=== PATIENT | female | born 1995 | race African-American/Black ===

== ENCOUNTER 2023-11-19 12:22 | Emergency (ER) | payer SELFPAY ==
[2023-11-19 12:38] VITALS: TEMP 96.8
[2023-11-19 12:59] LABS: Hematocrit 39.8 % (34.1-44.9); Hemoglobin 12.9 g/dL (11.2-15.7); Mean Cell Volume 79.3 fL (79.4-94.8); Mean Corpuscular Hemoglobin 25.7 pg (25.6-32.2); Mean Corpuscular Hgb Concent. 32.4 g/dL (32.2-35.5); Mean Platelet Volume 12.3 fL (9.4-12.3); Platelet Count 231 x10^3/uL (182-369); Red Blood Count 5.02 x10^6/uL (3.93-5.22)
[2023-11-19 13:22] LABS: ALBUMIN 4.6 g/dL (3.5-5.0); ANION GAP 12.9 MEQ/L (5-15); BILIRUBIN,TOTAL 0.4 mg/dL (0.2-1.3); Calcium 9.6 mg/dL (8.4-10.2); Creatinine 1 0.62 mg/dL (0.52-1.04); EST GLOMERULAR FILTRATION RATE 125.9 ML/MIN; NT PRO BNPII 23.9 pg/mL (<300); Potassium 3.5 mmol/L (3.5-5.1); Total Protein 7.6 g/dL (6.3-8.2)
--- NOTE | 2023-11-19 13:24 | XRAY ---
Indication: Pain. Comparison: None Portable chest demonstrates normal heart, lungs, and bony thorax.
[2023-11-19 13:32] LABS: Eosinophil 6 % (0.00-3.0); Lymphocytes 28 % (24-44); Monocyte 5 % (0.0-12.0); Neutrophils 61 % (1.56-6.13); Platelet Estimate NORMAL (NORMAL); Total Cells Counted 100
--- NOTE | 2023-11-19 14:51 | ERPHSYRPT ---
- History of Present Illness Time Seen by Provider: 11/19/23 13:00 Historian: patient Exam Limitations: no limitations Patient Subjective Stated Complaint: Chest pain Triage Nursing Assessment: Patient ambulated back to ED and transferred self to bed. Patient A+O X3. Patient's skin flushed, warm and diaphoretic. Patient states she started having chest pressure between 8-9 this am that has gotten worse. Patient denies N/V. Patient states chest pain is intermittent burning 12/13. Physician History: 48-year-old female no significant past medical history presents to the emergency department for evaluation of substernal chest pain that started this morning at approximately 8 AM. Patient states symptoms started after drinking her coffee. Patient symptoms described as a burning sensation that was substernal. No radi ation. No associated nausea vomiting or diaphoresis. Patient is currently asymptomatic. She is otherwise well and voices no other complaints or concerns at this time. Portions of this note were created with voice recognition technology. There may be grammatical, spelling, punctuation or sound alike errors Timing/Duration: today Activities at Onset: none Quality: aching Location: substernal Chest Pain Radiation: no radiation Severity of Pain-Current: mild Modifying Factors: Improves With: nothing Associated Symptoms: denies symptoms Prior Chest Pain/Cardiac Workup: no prior chest pain Nitro Today/Relief: no nitro taken today Aspirin Treatment Today: no aspirin today Allergies/Adverse Reactions: No Known Drug Allergies Allergy (Unverified 11/19/23 12:28) Home Medications: No Reportable Medications [No Reported Medications] 11/19/23 [History] Hx Influenza Vaccination/Date Given: No Hx Pneumococcal Vaccination/Date Given: No Immunizations Up to Date: Yes Travel Risk - International Travel Have you traveled outside of the country in past 3 weeks: No - Emerging Infectious Disease Are you exhibiting symptoms associated with any current EIDs: No - Review of Systems Constitutional: No Fever, No Chills Eyes: No Symptoms Ears, Nose, & Throat: No Symptoms Respiratory: No Symptoms, No Cough, No Dyspnea Cardiac: No Symptoms, No Chest Pain, No Edema, No Syncope Abdominal/Gastrointestinal: No Symptoms, No Abdominal Pain, No Nausea, No Vomiting, No Diarrhea Genitourinary Symptoms: No Symptoms, No Dysuria Musculoskeletal: No Symptoms, No Back Pain, No Neck Pain Skin: No Symptoms, No Rash Neurological: No Symptoms, No Dizziness, No Focal Weakness, No Sensory Changes Psychological: No Symptoms Endocrine: No Symptoms Hematologic/Lymphatic: No Symptoms Immunological/Allergic: No Symptoms All Other Systems: Reviewed and Negative - Past Medical History Pertinent Past Medical History: Yes Neurological History: No Pertinent History ENT History: No Pertinent History Cardiac History: Hypertension Respiratory History: No Pertinent History Endocrine Medical History: No Pertinent History Musculoskeletal History: No Pertinent History GI Medical History: No Pertinent History History: No Pertinent History Psycho-Social History: Anxiety Female Reproductive Disorders: No Pertinent History - Past Surgical History Past Surgical History: Yes Neuro Surgical History: No Pertinent History Cardiac: No Pertinent History Respiratory: No Pertinent History Gastrointestinal: No Pertinent History Genitourinary: No Pertinent History Musculoskeletal: No Pertinent History Female Surgical History: Section Other Surgical History: C section X 2 - Female History Hx Last Menstrual Period: currently Hx Now: No - Social History Smoking Status: Current every day smoker How long have you smoked: years Exposure to second hand smoke: No Drug Use: none - Social Determinants of Health Will the patient participate in the screening: Yes Do you worry about a steady place to live?: No Do you have any problems with any of the following?: No known problems In the past 12 months,have you had to go without utilities?: No Transportation Issues: No Has anyone in your support network made you feel unsafe?: No Have you or anyone in your house had to go without enough: No - Nursing Vital Signs Nursing Vital Signs: Initial Vital Signs Temperature 96.8 F 11/19/23 12:30 Pulse Rate 66 11/19/23 12:30 Respiratory Rate 20 11/19/23 12:30 Blood Pressure 163/128 11/19/23 12:30 O2 Sat by Pulse Oximetry 100 11/19/23 12:30 Pain Scale Pain Intensity 4 - Physical Exam General Appearance: no apparent distress, alert Eye Exam: PERRL/EOMI, eyes nml inspection Ears, Nose, Throat Exam: normal ENT inspection, moist mucous membranes Neck Exam: normal inspection, non-tender, supple, full range of motion Respiratory Exam: normal breath sounds, lungs clear, airway intact, No respiratory distress Cardiovascular Exam: regular rate/rhythm, normal heart sounds, normal peripheral pulses Gastrointestinal/Abdomen Exam: soft, No tenderness, No mass Back Exam: normal inspection, No CVA tenderness, No vertebral tenderness Extremity Exam: normal inspection, normal range of motion Neurologic Exam: alert, oriented x 3, cooperative, normal mood/affect, sensation nml, No motor deficits Skin Exam: normal color, warm, dry Lymphatic Exam: No adenopathy SpO2 Interpretation: normal SpO2: 98 O2 Delivery: Room Air - Course Nursing assessment & vital signs reviewed: Yes EKG Interpreted by Me: RATE (57), Sinus Rhythm, NORMAL AXIS, NORMAL INTERVALS - Radiology Exams Chest X-ray Interpretation: Teleradiologist Report (No acute findings) Ordered Tests: Active Orders 24 hr Category Date Time Status Broadcast Meteorologist STAT Care 11/19/23 12:32 Active EKG-ER Only STAT Care 11/19/23 12:31 Active IV Insertion STAT Care 11/19/23 12:31 Active Pulse Oximetry (ED) STAT Care 11/19/23 12:31 Active CHEST 1 VIEW (PORTABLE) Stat Exams 11/19/23 12:32 Completed CBC W DIFF Stat Lab 11/19/23 12:45 Completed CMP Stat Lab 11/19/23 12:45 Completed D-DIMER QUANTITATIVE Stat Lab 11/19/23 12:45 Completed Manual Differential NC Stat Lab 11/19/23 12:45 Completed NT PRO BNPII Stat Lab 11/19/23 12:45 Completed TROPONIN Q4H Lab 11/19/23 12:45 Completed TROPONIN Q4H Lab 11/19/23 14:53 Completed TROPONIN Q4H Lab 11/19/23 20:45 Ordered Lab/Rad Data: Laboratory Result Diagrams 11/19/23 12:45 11/19/23 12:45 Laboratory Results 11/19/23 11/19/23 11/19/23 Range/Units 14:53 12:45 12:45 WBC (3.98-10.04) x10^3/uL RBC (3.93-5.22) x10^6/uL Hgb (11.2-15.7) g/dL Hct (34.1-44.9) % MCV (79.4-94.8) fL MCH (25.6-32.2) pg MCHC (32.2-35.5) g/dL RDW (11.7-14.4) % Plt Count (182-369) x10^3/uL MPV (9.4-12.3) fL Segmented Neutrophils (1.56-6.13) % Lymphocytes (Manual) (24-44) % Monocytes (Manual) (0.0-12.0) % Eosinophils (Manual) (0.00-3.0) % Platelet Estimate (NORMAL) RBC Morphology D-Dimer < 0.19 (0.0-0.50) mg/L Sodium (135-145) mmol/L Potassium (3.5-5.1) mmol/L Chloride (98-107) mmol/L Carbon Dioxide (22-30) mmol/L Anion Gap (5-15) MEQ/L BUN (7-17) mg/dL Creatinine (0.52-1.04) mg/dL Estimated GFR ML/MIN Glucose (74-106) mg/dL Calcium (8.4-10.2) mg/dL Total Bilirubin (0.2-1.3) mg/dL AST (14-36) U/L ALT (0-35) U/L Alkaline Phosphatase (38-126) U/L Troponin I < 0.012 < 0.012 (0.000-0.033) ng/mL NT-Pro-B Natriuret Pep (<300) pg/mL Serum Total Protein (6.3-8.2) g/dL Albumin (3.5-5.0) g/dL 11/19/23 11/19/23 Range/Units 12:45 12:45 WBC 5.0 (3.98-10.04) x10^3/uL RBC 5.02 (3.93-5.22) x10^6/uL Hgb 12.9 (11.2-15.7) g/dL Hct 39.8 (34.1-44.9) % MCV 79.3 L (79.4-94.8) fL MCH 25.7 (25.6-32.2) pg MCHC 32.4 (32.2-35.5) g/dL RDW 14.0 (11.7-14.4) % Plt Count 231 (182-369) x10^3/uL MPV 12.3 (9.4-12.3) fL Segmented Neutrophils 61 H (1.56-6.13) % Lymphocytes (Manual) 28 (24-44) % Monocytes (Manual) 5 (0.0-12.0) % Eosinophils (Manual) 6 H (0.00-3.0) % Platelet Estimate NORMAL (NORMAL) RBC Morphology NORMAL D-Dimer (0.0-0.50) mg/L Sodium 137 (135-145) mmol/L Potassium 3.5 (3.5-5.1) mmol/L Chloride 102 (98-107) mmol/L Carbon Dioxide 25 (22-30) mmol/L Anion Gap 12.9 (5-15) MEQ/L BUN 9 (7-17) mg/dL Creatinine 0.62 (0.52-1.04) mg/dL Estimated GFR 125.9 ML/MIN Glucose 104 (74-106) mg/dL Calcium 9.6 (8.4-10.2) mg/dL Total Bilirubin 0.40 (0.2-1.3) mg/dL AST 27 (14-36) U/L ALT 21 (0-35) U/L Alkaline Phosphatase 57 (38-126) U/L Troponin I (0.000-0.033) ng/mL NT-Pro-B Natriuret Pep 23.9 (<300) pg/mL Serum Total Protein 7.6 (6.3-8.2) g/dL Albumin 4.6 (3.5-5.0) g/dL - Progress Progress: improved Air Movement: good Progress Note: Heart score is 1 28-year-old female presents to emergency department for evaluation of substernal chest pain after drinking coffee. Physical exam nonremarkable. D-dimer negative. Troponin negative x 2. EKG sinus rhythm no ischemic changes. Chest x-ray nonremarkable. Patient's heart score is 1. Patient remains asymptomatic. No indication for further workup will discharge home. Patient agrees to follow-up with her primary care doctor within 48 hours for reevaluation. Portions of this note were created with voice recognition technology. There may be grammatical, spelling, punctuation or sound alike errors Complexity problem addressed is moderate acute complicated. No critical care time. Complex of data reviewed and analyzed is moderate. Test ordered chest reviewed results analyzed and correlated clinically with history and physical exam. Risk of complication and or risk of morbidity/mortality of patient management is low. Vital stable time spent to discharge patient is approximately 15 minutes. Plan of care established for shared decision making. No social determinants of health present impede follow-up. Portions of this note were created with voice recognition technology. There may be grammatical, spelling, punctuation or sound alike errors 11/19/23 15:53 Blood Culture(s) Obtained: No Antibiotics given: No Counseled pt/family regarding: diagnosis, need for follow-up, rad results - Departure Departure Disposition: Home Clinical Impression: Chest pain Condition: Stable Critical Care Time: No Referrals: AMNA THAPA MD [Primary Care Provider] - Follow up/PCP as directed Additional Instructions: Discharge/Care Plan REDDY HERNANDEZ was seen on 11/19/23 in the Emergency Room. The patient was counseled regarding Diagnosis,Lab results, Imaging studies, need for follow up and when to return to the Emergency Room. Prescriptions given: Discharge Note I have spoken with the patient and/or caregivers. I have explained the patient's condition, diagnosis and treatment plan based on the information available to me at this time. I have answered the patient's and/or caregiver's questions and addressed any concerns. The patient and/or caregivers have as good understanding of the patient's diagnosis, condition and treatment plan as can be expected at this point. The vital signs have been stable. The patient's condition is stable and appropriate for discharge from the emergency department. The patient will pursue further outpatient evaluation with the primary care physician or other designated or consulting physician as outlined in the discharge instructions. The patient and/or caregivers are agreeable to this plan of care and follow-up instructions have been explained in detail. The patient and/or caregivers have received these instruction. The patient/and or caregivers are aware that any significant change in condition or worsening of symptoms should prompt an immediate return to this or the closest emergency department or call 911.
[2023-11-19 15:45] VITALS: BP 149/88; PULSE 58; RESP 17; O2SAT 98
== END 2023-11-19 15:52 | disposition home or self-care (01) ==
LOC: ED 12:22
DX: R07.9 Chest pain, unspecified (principal); I10 Essential (primary) hypertension; Z72.0 Tobacco use
CPT/HCPCS: 36000; 36415; 71045; 80053; 83880; 84484; 85025; 85379; 93005; 93041; 94760; 99284

== ENCOUNTER 2024-03-07 06:35 | Emergency (ER) | payer BC ==
[2024-03-07 06:53] VITALS: TEMP 97.6
--- NOTE | 2024-03-07 07:24 | ERPHSYRPT ---
- History of Present Illness Time Seen by Provider: 03/07/24 07:00 Source: patient Exam Limitations: no limitations Patient Subjective Stated Complaint: pt states her blood pressure has been high for the past 3 days Triage Nursing Assessment: pt ambulated into the er; pt is axo x4; c/o htn; pt states 10/10 pain to head; blood pressure 133/102 on arrival; skin warm and dry; no respiratory distress present; vitals wnl; clear apical heart tone; s/o bodyaches Physician History: This is a 28-year-old -[place] female who arrives by private vehicle secondary to concerns for hypertension for the last 3 days. In addition she has had headache, felt weak, nonproductive dry cough, sore throat, arthralgias and myalgias. She denies chest pain. Today at work she had a systolic blood pressure of over 200 despite taking her amlodipine last night. She has increased stress at home and at work per her report. She is a daily smoker of tobacco cigarettes. Her last menstrual period was 02/17/2024. Patient states t hat she donated plasma twice recently and the most recent donation was on prior to this evaluation. The patient has not had any vomiting or diarrhea symptoms. She does not have abdominal pain. The patient has a history of hypertension and anxiety Timing/Duration: today Severity: mild Modifying Factors: Improves With: nothing Associated Symptoms: weakness, No vomiting, No abdominal pain, No shortness of breath, No chest pain Allergies/Adverse Reactions: nickel Allergy (Verified 03/07/24 06:42) Home Medications: Amlodipine Besylate 5 mg PO DAILY 03/07/24 [History] Escitalopram Oxalate 10 mg PO DAILY 03/07/24 [History] hydrOXYzine HCL [Hydroxyzine HCl] 25 mg PO QID PRN 03/07/24 [History] Hx Tetanus, Diphtheria Vaccination/Date Given: Yes Hx Influenza Vaccination/Date Given: No Hx Pneumococcal Vaccination/Date Given: No Immunizations Up to Date: No Travel Risk - International Travel Have you traveled outside of the country in past 3 weeks: No - Emerging Infectious Disease Are you exhibiting symptoms associated with any current EIDs: Yes Symptoms: Headaches/Body Aches/ - Review of Systems Constitutional: Weakness Eyes: No Symptoms Ears, Nose, & Throat: Throat Pain Respiratory: Cough Cardiac: No Symptoms Abdominal/Gastrointestinal: No Symptoms Genitourinary Symptoms: No Symptoms Musculoskeletal: Arthralgias, Myalgias Skin: No Symptoms Neurological: Headache Psychological: No Symptoms Endocrine: No Symptoms Hematologic/Lymphatic: No Symptoms Immunological/Allergic: No Symptoms All Other Systems: Reviewed and Negative - Past Medical History Pertinent Past Medical History: Yes Neurological History: No Pertinent History ENT History: No Pertinent History Cardiac History: Hypertension Respiratory History: No Pertinent History Endocrine Medical History: No Pertinent History Musculoskeletal History: No Pertinent History GI Medical History: No Pertinent History History: No Pertinent History Psycho-Social History: Anxiety Female Reproductive Disorders: No Pertinent History - Past Surgical History Past Surgical History: Yes Neuro Surgical History: No Pertinent History Cardiac: No Pertinent History Respiratory: No Pertinent History Gastrointestinal: No Pertinent History Genitourinary: No Pertinent History Musculoskeletal: No Pertinent History Female Surgical History: Section Other Surgical History: C section X 2 - Female History Hx Last Menstrual Period: 02/17/24 Hx Now: No - Social History Smoking Status: Current every day smoker How long have you smoked: years Exposure to second hand smoke: No Drug Use: none - Social Determinants of Health Will the patient participate in the screening: Yes Do you worry about a steady place to live?: No Do you have any problems with any of the following?: No known problems In the past 12 months,have you had to go without utilities?: No Transportation Issues: No Has anyone in your support network made you feel unsafe?: No Have you or anyone in your house had to go without enough: No - Nursing Vital Signs Nursing Vital Signs: Initial Vital Signs Pulse Rate 64 03/07/24 06:41 Blood Pressure 133/102 03/07/24 06:41 O2 Sat by Pulse Oximetry 99 03/07/24 06:41 Pain Scale Pain Intensity 10 - Physical Exam General Appearance: no apparent distress, alert, anxiety, thin Eye Exam: PERRL/EOMI, eyes nml inspection Ears, Nose, Throat Exam: normal ENT inspection, moist mucous membranes Neck Exam: normal inspection, non-tender, supple, full range of motion Respiratory Exam: normal breath sounds, lungs clear, airway intact, No chest tenderness, No respiratory distress Cardiovascular Exam: regular rate/rhythm, normal heart sounds, normal peripheral pulses Gastrointestinal/Abdomen Exam: soft, normal bowel sounds, No tenderness Pelvic Exam: not done Rectal Exam: not done Back Exam: normal inspection, normal range of motion, No CVA tenderness, No vertebral tenderness Extremity Exam: normal inspection, normal range of motion, pelvis stable Neurologic Exam: alert, oriented x 3, cooperative, 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, nml cerebellar function, nml station & gait, sensation nml Skin Exam: normal color, warm, dry Lymphatic Exam: No adenopathy SpO2 Interpretation: normal SpO2: 99 O2 Delivery: Room Air - Course Nursing assessment & vital signs reviewed: Yes Ordered Tests: Active Orders 24 hr Category Date Time Status Returner STAT Care 03/07/24 07:26 Active EKG-ER Only STAT Care 03/07/24 07:24 Active IV Insertion STAT Care 03/07/24 07:24 Active Pulse Oximetry (ED) STAT Care 03/07/24 07:24 Active CHEST 1 VIEW (PORTABLE) Stat Exams 03/07/24 07:25 Taken BLOOD CULTURE Stat Lab 03/07/24 08:04 Received CBC W DIFF Stat Lab 03/07/24 07:52 Completed CMP Stat Lab 03/07/24 07:52 Completed CULTURE,URINE Stat Lab 03/07/24 07:25 Received HCG QUALITATIVE, SERUM Stat Lab 03/07/24 07:52 Completed MAGNESIUM Stat Lab 03/07/24 07:52 Completed MONO SCREEN Stat Lab 03/07/24 07:52 Completed TROPONIN Q4H Lab 03/07/24 07:52 Completed TROPONIN Q4H Lab 03/07/24 11:30 Ordered TROPONIN Q4H Lab 03/07/24 15:30 Ordered UA W/RFX UR CULTURE Stat Lab 03/07/24 07:25 Completed Medication Summary Discontinued Medications Generic Name Dose Route Start Last Admin Trade Name Joceline PRN Reason Stop Dose Admin Ceftriaxone Sodium 1 gm in 100 mls @ 200 mls/hr 03/07/24 08:45 03/07/24 09:44 Rocephin 1 Gm / 100 Ml Nacl IV 03/07/24 09:14 Not Given STAT ONE Levofloxacin 500 mg 03/07/24 08:51 03/07/24 09:43 Levofloxacin 500 Mg Tablet PO 03/07/24 08:52 500 mg STAT ONE Administration Levofloxacin Confirm 03/07/24 09:43 Levofloxacin 500 Mg Tablet Administered 03/07/24 09:44 Dose 500 mg .ROUTE .[facility] ONE Lab/Rad Data: Laboratory Result Diagrams 03/07/24 07:52 03/07/24 07:52 Laboratory Results 03/07/24 03/07/24 03/07/24 Range/Units 08:08 08:08 07:52 WBC (3.98-10.04) x10^3/uL RBC (3.93-5.22) x10^6/uL Hgb (11.2-15.7) g/dL Hct (34.1-44.9) % MCV (79.4-94.8) fL MCH (25.6-32.2) pg MCHC (32.2-35.5) g/dL RDW (11.7-14.4) % Plt Count (182-369) x10^3/uL MPV (9.4-12.3) fL Gran % (34.0-71.1) % Immature Gran % (Auto) (0.001-0.429) % Nucleat RBC Rel Count (0.00-0.2) % Eos # (Auto) (0.04-0.36) x10^3/uL Immature Gran # (Auto) (0.001-0.031) x10^3u/L Absolute Lymphs (auto) (1.18-3.74) x10^3/uL Absolute Monos (auto) (0.24-0.86) x10^3/uL Absolute Nucleated RBC (0.00-0.012) x10^3u/L Lymphocytes % (19.3-51.7) % Monocytes % (4.7-12.5) % Eosinophils % (0.7-5.8) % Basophils % (0.1-1.2) % Absolute Granulocytes (1.56-6.13) x10^3/uL Basophils # (0.01-0.08) x10^3/uL Sodium (135-145) mmol/L Potassium (3.5-5.1) mmol/L Chloride (98-107) mmol/L Carbon Dioxide (22-30) mmol/L Anion Gap (5-15) MEQ/L BUN (7-17) mg/dL Creatinine (0.52-1.04) mg/dL Estimated GFR ML/MIN Glucose (74-106) mg/dL Calcium (8.4-10.2) mg/dL Magnesium (1.6-2.3) mg/dL Total Bilirubin (0.2-1.3) mg/dL AST (14-36) U/L ALT (0-35) U/L Alkaline Phosphatase (38-126) U/L Troponin I (0.000-0.033) ng/mL Serum Total Protein (6.3-8.2) g/dL Albumin (3.5-5.0) g/dL Serum HCG, Qual NEGATIVE (NEGATIVE) Urine Color (Yellow) Urine Appearance (Clear) Urine pH (4.6-8.0) Ur Specific [place] (1.005-1.030) Urine Protein (Negative) Urine Glucose (UA) (Negative) mg/dL Urine Ketones (Negative) Urine Blood (Negative) Urine Nitrite (Negative) Urine Bilirubin (Negative) Urine Urobilinogen (0.2) mg/dL Ur Leukocyte Esterase (Negative) U Hyaline Cast (Auto) (0-2) /LPF Urine Microscopic RBC (0-5) /HPF Urine Microscopic WBC (0-5) /HPF Ur Epithelial Cells (None Seen) /HPF Urine Bacteria (None Seen) /HPF Urine Culture Reflexed (NO) Monoscreen NEGATIVE (NEGATIVE) Influenza Type A Ag NEGATIVE (NEGATIVE) Influenza Type B Ag NEGATIVE (NEGATIVE) RSV (PCR) NEGATIVE (NEGATIVE) SARS-CoV-2 (PCR) NEGATIVE (NEGATIVE) Group A Strep Antibody NOT DETECTED (NEGATIVE) 03/07/24 03/07/24 03/07/24 Range/Units 07:52 07:52 07:52 WBC 8.2 (3.98-10.04) x10^3/uL RBC 4.87 (3.93-5.22) x10^6/uL Hgb 12.3 (11.2-15.7) g/dL Hct 38.9 (34.1-44.9) % MCV 79.9 (79.4-94.8) fL MCH 25.3 L (25.6-32.2) pg MCHC 31.6 L (32.2-35.5) g/dL RDW 14.2 (11.7-14.4) % Plt Count 217 (182-369) x10^3/uL MPV 11.7 (9.4-12.3) fL Gran % 69.0 (34.0-71.1) % Immature Gran % (Auto) 0.2 (0.001-0.429) % Nucleat RBC Rel Count 0.0 (0.00-0.2) % Eos # (Auto) 0.31 (0.04-0.36) x10^3/uL Immature Gran # (Auto) 0.02 (0.001-0.031) x10^3u/L Absolute Lymphs (auto) 1.58 (1.18-3.74) x10^3/uL Absolute Monos (auto) 0.58 (0.24-0.86) x10^3/uL Absolute Nucleated RBC 0.00 (0.00-0.012) x10^3u/L Lymphocytes % 19.2 L (19.3-51.7) % Monocytes % 7.0 (4.7-12.5) % Eosinophils % 3.8 (0.7-5.8) % Basophils % 0.8 (0.1-1.2) % Absolute Granulocytes 5.68 (1.56-6.13) x10^3/uL Basophils # 0.07 (0.01-0.08) x10^3/uL Sodium 140 (135-145) mmol/L Potassium 3.7 (3.5-5.1) mmol/L Chloride 107 (98-107) mmol/L Carbon Dioxide 25 (22-30) mmol/L Anion Gap 11.2 (5-15) MEQ/L BUN 17 (7-17) mg/dL Creatinine 0.88 (0.52-1.04) mg/dL Estimated GFR 92.9 ML/MIN Glucose 98 (74-106) mg/dL Calcium 9.5 (8.4-10.2) mg/dL Magnesium 2.0 (1.6-2.3) mg/dL Total Bilirubin 0.20 (0.2-1.3) mg/dL AST 41 H (14-36) U/L ALT 25 (0-35) U/L Alkaline Phosphatase 72 (38-126) U/L Troponin I < 0.012 (0.000-0.033) ng/mL Serum Total Protein 6.4 (6.3-8.2) g/dL Albumin 3.9 (3.5-5.0) g/dL Serum HCG, Qual (NEGATIVE) Urine Color (Yellow) Urine Appearance (Clear) Urine pH (4.6-8.0) Ur Specific [place] (1.005-1.030) Urine Protein (Negative) Urine Glucose (UA) (Negative) mg/dL Urine Ketones (Negative) Urine Blood (Negative) Urine Nitrite (Negative) Urine Bilirubin (Negative) Urine Urobilinogen (0.2) mg/dL Ur Leukocyte Esterase (Negative) U Hyaline Cast (Auto) (0-2) /LPF Urine Microscopic RBC (0-5) /HPF Urine Microscopic WBC (0-5) /HPF Ur Epithelial Cells (None Seen) /HPF Urine Bacteria (None Seen) /HPF Urine Culture Reflexed (NO) Monoscreen (NEGATIVE) Influenza Type A Ag (NEGATIVE) Influenza Type B Ag (NEGATIVE) RSV (PCR) (NEGATIVE) SARS-CoV-2 (PCR) (NEGATIVE) Group A Strep Antibody (NEGATIVE) 03/07/24 Range/Units 07:25 WBC (3.98-10.04) x10^3/uL RBC (3.93-5.22) x10^6/uL Hgb (11.2-15.7) g/dL Hct (34.1-44.9) % MCV (79.4-94.8) fL MCH (25.6-32.2) pg MCHC (32.2-35.5) g/dL RDW (11.7-14.4) % Plt Count (182-369) x10^3/uL MPV (9.4-12.3) fL Gran % (34.0-71.1) % Immature Gran % (Auto) (0.001-0.429) % Nucleat RBC Rel Count (0.00-0.2) % Eos # (Auto) (0.04-0.36) x10^3/uL Immature Gran # (Auto) (0.001-0.031) x10^3u/L Absolute Lymphs (auto) (1.18-3.74) x10^3/uL Absolute Monos (auto) (0.24-0.86) x10^3/uL Absolute Nucleated RBC (0.00-0.012) x10^3u/L Lymphocytes % (19.3-51.7) % Monocytes % (4.7-12.5) % Eosinophils % (0.7-5.8) % Basophils % (0.1-1.2) % Absolute Granulocytes (1.56-6.13) x10^3/uL Basophils # (0.01-0.08) x10^3/uL Sodium (135-145) mmol/L Potassium (3.5-5.1) mmol/L Chloride (98-107) mmol/L Carbon Dioxide (22-30) mmol/L Anion Gap (5-15) MEQ/L BUN (7-17) mg/dL Creatinine (0.52-1.04) mg/dL Estimated GFR ML/MIN Glucose (74-106) mg/dL Calcium (8.4-10.2) mg/dL Magnesium (1.6-2.3) mg/dL Total Bilirubin (0.2-1.3) mg/dL AST (14-36) U/L ALT (0-35) U/L Alkaline Phosphatase (38-126) U/L Troponin I (0.000-0.033) ng/mL Serum Total Protein (6.3-8.2) g/dL Albumin (3.5-5.0) g/dL Serum HCG, Qual (NEGATIVE) Urine Color Yellow (Yellow) Urine Appearance Cloudy A (Clear) Urine pH 6.0 (4.6-8.0) Ur Specific [place] 1.020 (1.005-1.030) Urine Protein Negative (Negative) Urine Glucose (UA) Negative (Negative) mg/dL Urine Ketones Negative (Negative) Urine Blood Negative (Negative) Urine Nitrite Negative (Negative) Urine Bilirubin Negative (Negative) Urine Urobilinogen 1.0 A (0.2) mg/dL Ur Leukocyte Esterase Small A (Negative) U Hyaline Cast (Auto) NONE SEEN (0-2) /LPF Urine Microscopic RBC 0-2 (0-5) /HPF Urine Microscopic WBC 11-20 A (0-5) /HPF Ur Epithelial Cells Moderate A (None Seen) /HPF Urine Bacteria Moderate A (None Seen) /HPF Urine Culture Reflexed YES (NO) Monoscreen (NEGATIVE) Influenza Type A Ag (NEGATIVE) Influenza Type B Ag (NEGATIVE) RSV (PCR) (NEGATIVE) SARS-CoV-2 (PCR) (NEGATIVE) Group A Strep Antibody (NEGATIVE) - Progress Progress: improved, re-examined Progress Note: 03/07/24 07:34 My medical decision making and the assignment of moderate complexity to this patient's medical issue today is based on review of the patient's past medical history, review of the patient's medication list, review the patient drug allergy list, history present illness and physical findings on examination. The workup today includes placement of intravenous line, CBC, CMP, magnesium level, troponin level, twelve-lead EKG, urinalysis, test, viral swabs, monotest, group A strep test. Differential diagnosis includes but is not limited to myocardial infarction, hypertension, urinary tract infection, dehydration, viral illness, group A strep pharyngitis, arrhythmia, electrolyte abnormalities 03/07/24 08:52 The patient refused placement of a IV line. I interpreted the preliminary chest x-ray report. There is no evidence of any acute cardiopulmonary process. 03/07/24 09:27 The patient states she is feeling better. Her most recent blood pressure is recorded as 147/83. I interpreted the patient's laboratory data results. Based on the laboratory data results, the patient does have a urinary tract infection but no other acute, emergent medical issue. Counseled pt/family regarding: lab results, diagnosis, need for follow-up, rad results Medical Desision Making - Diagnostic Testing Diagnostic test were ordered, analyzed, and reviewed by me: Yes Radiological Interpretation: Interpreted by me - Risk of complications The pt has a mod risk of morbidity or mortality based on: Need for prescription drug management - Departure Departure Disposition: Home Clinical Impression: Hypertension, Urinary tract infection, Stress Condition: Stable Critical Care Time: No Referrals: AMNA THAPA MD [Primary Care Provider] - Follow up/PCP as directed Additional Instructions: Drink plenty of fluids. Take your antibiotics and other medications as prescribed. Call your primary care provider on 03/09/2024 to make arrangements for follow-up appointment to be seen in the next 3 to 5 days. Prescriptions: Ciprofloxacin [Cipro 500 MG] 500 mg PO BID #14 tablet
[2024-03-07 08:15] LABS: Absolute Neutrophil Ct (ANC) 5.68 x10^3/uL (1.56-6.13); BASOPHIL % 0.8 % (0.1-1.2); Basophil (Absolute #) 0.07 x10^3/uL (0.01-0.08); Eosinophil % 3.8 % (0.7-5.8); Eosinophil (Absolute #) 0.31 x10^3/uL (0.04-0.36); Hematocrit 38.9 % (34.1-44.9); Hemoglobin 12.3 g/dL (11.2-15.7); IMMATURE GRAN # 0.02 x10^3u/L (0.001-0.031); IMMATURE GRAN % 0.2 % (0.001-0.429); Lymphocyte (Absolute #) 1.58 x10^3/uL (1.18-3.74); Lymphocytes % 19.2 % (19.3-51.7); Mean Cell Volume 79.9 fL (79.4-94.8); Mean Corpuscular Hemoglobin 25.3 pg (25.6-32.2); Mean Corpuscular Hgb Concent. 31.6 g/dL (32.2-35.5); Mean Platelet Volume 11.7 fL (9.4-12.3); Monocyte (Absolute #) 0.58 x10^3/uL (0.24-0.86); Platelet Count 217 x10^3/uL (182-369); Red Blood Count 4.87 x10^6/uL (3.93-5.22); Red Cell Distribution Width 14.2 % (11.7-14.4); White Blood Count 8.2 x10^3/uL (3.98-10.04)
[2024-03-07 08:25] LABS: Appearance Cloudy (Clear); Bacteria Moderate /HPF (None Seen); Bilirubin Negative (Negative); Blood Negative (Negative); Epithelial Cells Moderate /HPF (None Seen); Glucose, Urine Negative (Negative); Hyaline Casts NONE SEEN /LPF (0-2); Ketones Negative (Negative); Leukocyte Esterase Small (Negative); Nitrite Negative (Negative); Protein,Urine Dip Negative (Negative); RBC 0-2 /HPF (0-5)
[2024-03-07 08:29] LABS: ALBUMIN 3.9 g/dL (3.5-5.0); ANION GAP 11.2 MEQ/L (5-15); BILIRUBIN,TOTAL 0.2 mg/dL (0.2-1.3); Calcium 9.5 mg/dL (8.4-10.2); Creatinine 1 0.88 mg/dL (0.52-1.04); EST GLOMERULAR FILTRATION RATE 92.9 ML/MIN; Potassium 3.7 mmol/L (3.5-5.1); Total Protein 6.4 g/dL (6.3-8.2)
[2024-03-07 08:31] LABS: HCG SERUM TEST NEGATIVE (NEGATIVE)
[2024-03-07 08:52] VITALS: O2SAT 99
[2024-03-07 09:16] LABS: INFLUENZA A NEGATIVE (NEGATIVE); INFLUENZA B NEGATIVE (NEGATIVE); RESPIRATORY SYNCTIAL VIRUS NEGATIVE (NEGATIVE); SARS-CoV-2 Xpert Express NEGATIVE (NEGATIVE)
[2024-03-07] MEDS: Levofloxacin 500 MG Tablet PO ONE (09:43)
[2024-03-07] MEDS ORDERED: Levofloxacin 500 MG Tablet ONE (09:43)
[2024-03-07] MEDS: ROCEPHIN 1 GM / 100 ML NaCl 1 GM/100 ML IVPB IV ONE (09:44)
[2024-03-07 09:54] VITALS: BP 131/79; PULSE 62; RESP 18
--- NOTE | 2024-03-07 18:56 | XRAY ---
Indication: Cough. Flu symptoms. Comparison: November 19, 2023. Portable apical lordotic chest again demonstrates normal heart, lungs, and bony thorax.
== END 2024-03-07 10:01 | disposition home or self-care (01) ==
LOC: ED 06:35
DX: I10 Essential (primary) hypertension (principal); N39.0 Urinary tract infection, site not specified; F43.9 Reaction to severe stress, unspecified; R51.9 Headache, unspecified; R53.1 Weakness; R05.9 Cough, unspecified; J02.9 Acute pharyngitis, unspecified; M79.10 Myalgia, unspecified site; Z79.899 Other long term (current) drug therapy; Z72.0 Tobacco use
CPT/HCPCS: 0241U; 36415; 71045; 80053; 81001; 83735; 84484; 84703; 85025; 86308; 87040; 87086; 87651; 93005; 93041; 94760; 99284; A9270-GY